=== PATIENT | female | born 1975 | race Caucasian/White ===

== ENCOUNTER 2021-01-22 05:28 | Emergency (ER) | payer MEDICAID ==
[~2021-01-22] VITALS: Ht 154.9 cm; Wt 81.8 kg
[~2021-01-22 05:28] MED LIST: DIAZ5TAB PO; EPIN0.3A3 IM; NO HOME MEDS; PRED20TA PO
[2021-01-22] MEDS ORDERED: ondansetron 4mg rapidly disintigrating tab PO ONE (07:45)
[2021-01-22] MEDS ORDERED: loperamide 2mg capsule PO ONE (07:45)
[2021-01-22 08:21] LABS: BASOPHILS % (AUTO) 0.3 % (0-1); EOSINOPHILS % (AUTO) 0 % (0-6); HEMATOCRIT 39.1 % (35.0-45.0); HEMOGLOBIN 13.2 g/dl (12.0-16.0); LYMPHOCYTES # (AUTO) 0.6 X10'3 (1.1-4.8); LYMPHOCYTES % (AUTO) 14.2 % (21-51); MEAN CORPUSCULAR HEMOGLOBIN 30.1 PG (27.0-31.0); MEAN CORPUSCULAR HGB CONC 33.8 g/dL (33.0-36.5); MEAN PLATELET VOLUME 8.6 FL (7.4-10.4); MONOCYTES # (AUTO) 0.2 X10'3 (0-0.9); MONOCYTES % (AUTO) 4.3 % (2-12); NEUTROPHILS # (AUTO) 3.4 X10'3 (1.8-7.7); NEUTROPHILS % (AUTO) 81.2 % (42-75); PLATELET COUNT 122 X10'3 (140-440); RED BLOOD COUNT 4.39 X10'6 (4.20-5.60); RED CELL DISTRIBUTION WIDTH 13.3 % (11.5-14.5); WHITE BLOOD COUNT 4.2 X10'3 (4.5-11.0)
[2021-01-22 08:29] LABS: ALANINE AMINOTRANSFERASE 104 U/L (12-78); ALBUMIN 3.4 G/DL (3.4-5.0); ALBUMIN/GLOBULIN RATIO 0.8 (1.1-1.5); ALKALINE PHOSPHATASE 84 IU/L (46-116); ANION GAP 13 (8-16); ASPARTATE AMINO TRANSFERASE 102 U/L (10-37); BILIRUBIN,TOTAL 0.6 MG/DL (0.1-1.0); BLOOD UREA NITROGEN 13 MG/DL (7-18); CALCIUM 8.4 MG/DL (8.5-10.1); CHLORIDE 102 MMOL/L (99-107); CREATININE 0.81 MG/DL (0.40-0.90); GLUCOSE 103 MG/DL (70-104); LIPASE 153 U/L (73-393); POTASSIUM 3.4 MMOL/L (3.5-5.1); SODIUM 137 MMOL/L (135-145); TOTAL CARBON DIOXIDE 22.3 MMOL/L (24-32); TOTAL PROTEIN 7.8 G/DL (6.4-8.2); eGFR 77 ML/MIN
[2021-01-22] MEDS ORDERED: ONDA8TAB13 PO (08:51)
--- NOTE | 2021-01-22 09:02 | NUR ---
1000ML OF WATER GIVEN TO PT. FOR A FLUID CHANLANGE
[2021-01-22 10:59] VITALS: BP 116/76
== END 2021-01-22 10:38 | disposition home or self-care (01) ==
LOC: ER 05:28
DX: U07.1 COVID-19 (principal); K52.9 Noninfective gastroenteritis and colitis, unspecified; G89.29 Other chronic pain; Z87.442 Personal history of urinary calculi; Z72.89 Other problems related to lifestyle; Z88.2 Allergy status to sulfonamides; Z79.899 Other long term (current) drug therapy
CPT/HCPCS: 36415; 80053; 83690; 85025; 99283

== ENCOUNTER 2021-05-17 08:46 | Emergency (ER) | payer MEDICAID, OTHER ==
[~2021-05-17] VITALS: Ht 152.4 cm; Wt 84.0 kg
[~2021-05-17 08:46] MED LIST changes: +ONDA8TAB13 PO
[2021-05-17 09:23] VITALS: BP 135/75
[2021-05-17] MEDS ORDERED: ONDA4TAB6 PO (11:43)
[2021-05-17] MEDS ORDERED: CYCL-1 PO (11:43)
[2021-05-17] MEDS ORDERED: HYDR-3965 PO (11:43)
== END 2021-05-17 12:19 | disposition home or self-care (01) ==
LOC: ER 08:47
DX: S13.4XXA Sprain of ligaments of cervical spine, initial encounter (principal); S00.01XA Abrasion of scalp, initial encounter; S80.02XA Contusion of left knee, initial encounter; G89.29 Other chronic pain; Z87.442 Personal history of urinary calculi; Z98.51 Tubal ligation status; Z72.89 Other problems related to lifestyle; Z88.2 Allergy status to sulfonamides; Z79.899 Other long term (current) drug therapy; V89.2XXA Person injured in unspecified motor-vehicle accident, traffic, initial encounter; Y93.89 Activity, other specified; Y92.89 Other specified places as the place of occurrence of the external cause; Y99.8 Other external cause status
CPT/HCPCS: 99283

== ENCOUNTER 2021-05-27 11:42 | Outpatient (CLI) | payer MEDICAID, OTHER ==
[~2021-05-27 11:42] MED LIST changes: +CYCL-1 PO; +ONDA4TAB6 PO
== END 2021-05-27 23:59 | disposition home or self-care (01) ==
LOC: LAB 11:42
PROVIDERS: ATTEND Family Medicine
DX: M25.562 Pain in left knee (principal)
CPT/HCPCS: 73562